=== PATIENT | female | born 1980 | race Caucasian/White ===

== ENCOUNTER 2021-02-28 13:21 | Outpatient (REF) | payer MEDICAID, SELFPAY | END 2021-02-28 13:22 | disposition home or self-care (01) | LOC: HO.LAB 13:21 | PROVIDERS: Visit Provider Internal Medicine | DX: Z20.822 Contact with and (suspected) exposure to COVID-19 (principal) | CPT/HCPCS: C9803; U0003; U0005 ==

== ENCOUNTER 2021-03-01 13:30 | Emergency (ER) | payer MEDICAID, SELFPAY ==
[2021-03-01 13:34] VITALS: BP 138/103; PULSE 73; RESP 18; TEMP 36.7; O2SAT 98; BMI 24.2
== END 2021-03-01 15:01 | disposition left against medical advice (07) ==
LOC: HO.ED 14:50
PROVIDERS: Emergency Provider Emergency Medicine
DX: R10.9 Unspecified abdominal pain (principal)
CPT/HCPCS: 99282

== ENCOUNTER 2021-03-27 13:50 | Outpatient (REF) | payer MEDICAID, SELFPAY ==
[2021-03-27 14:09] LABS: COVID-19 Test Negative (Negative)
== END 2021-03-27 13:51 | disposition home or self-care (01) ==
LOC: HO.LAB 13:50
PROVIDERS: Visit Provider Internal Medicine
DX: Z20.822 Contact with and (suspected) exposure to COVID-19 (principal)
CPT/HCPCS: 36415; 87635; C9803

== ENCOUNTER → 2021-09-18 13:29 | Outpatient (BNVA) | payer MEDICAID, SELFPAY | PROVIDERS: PCP Nurse Practitioner Primary Care | DX: N20.0 Calculus of kidney (principal) | CPT/HCPCS: 99212 ==

== ENCOUNTER 2021-10-29 16:11 | Outpatient (REF) | payer MEDICAID, SELFPAY ==
--- NOTE | ~2021-10-29 | US_ITS ---
EXAMINATION: US RETROPERITONEAL LIMITED (RENAL ONLY) CLINICAL INFORMATION: Calculus of kidney. COMPARISON: Ultrasound abdomen with elastography 09/22/2019. CT abdomen and pelvis 07/01/2019. TECHNIQUE: Real-time imaging of the kidneys. FINDINGS: RIGHT KIDNEY: 12.2 x 4.4 x 5.6 cm (SAG x AP x TRV). The kidney is normal in size, contour, and echogenicity. Renal cortical thickness is normal. There is a 3 mm stone in the lower pole. No focal parenchymal lesions or hydronephrosis. LEFT KIDNEY: 10.4 x 4.4 x 4.4 cm (SAG x AP x TRV). The kidney is normal in size, contour, and echogenicity. There are areas of left renal cortical thinning or scarring. There is a small 3 mm stone in the midpole. No focal parenchymal lesions or hydronephrosis. US/US renal BI IMPRESSION: Small bilateral renal stones. Left renal cortical thinning or scarring.
== END 2021-10-29 16:12 | disposition home or self-care (01) ==
LOC: HO.US 16:11
DX: N20.0 Calculus of kidney (principal)
CPT/HCPCS: 76775

== ENCOUNTER 2022-07-22 08:57 | Outpatient (REF) | payer MEDICAID, SELFPAY ==
--- NOTE | ~2022-07-22 | US_ITS ---
EXAMINATION: MM DIAGNOSTIC DIGITAL BREAST TOMOSYNTHESIS, BILATERAL US DIAGNOSTIC ULTRASOUND BREAST, BILATERAL CLINICAL INFORMATION: 41-year-old with palpable concern outer left breast on and off for one year along with cyclical left breast pain. No prior breast imaging. No discharge. No pain or palpable mass noted by patient at time of appointment. The lifetime risk of breast cancer based on the Tyrer-Cuzick Model is 9%. COMPARISON: None (current study represents initial baseline exam). TECHNIQUE: Digital breast tomosynthesis is performed in both the craniocaudal and mediolateral oblique views along with computer-aided detection (CAD). Synthesized 2D images are generated from the tomosynthesis. Additional spot right CC and spot right ML x2 views are obtained. Ultrasound right breast is targeted to the upper and outer quadrant. Ultrasound left breast is targeted to the area of clinical concern outer breast 2:00 through 5:00 position. Grayscale imaging and color Doppler are performed without and with harmonics. FINDINGS: The breasts are heterogeneously dense, which may obscure small masses (ACR BI-RADS breast composition Category c). Right breast has a focal nodular asymmetry under 1 cm posterior upper outer quadrant with partly obscured margins, suspect intramammary node. Additional spot views do not clearly show notched hilus to confirm. Remainder of the right breast is unremarkable. The left breast shows no mass or architectural abnormality. Neither breast shows abnormal calcifications. The bilateral axilla and skin contours are unremarkable. No skin thickening or coarsening of the Branden's ligaments. Ultrasound right breast shows no cystic or solid mass or intramammary node to correspond to finding on mammography. Ultrasound left breast shows 2 adjacent oval cysts mid 3:00 position each under 1 cm, anechoic, and with increased through-transmission of sound. No associated color flow. There is no solid mass or architectural abnormality. No focal duct ectasia. No skin thickening or edema tracking in soft tissue planes. Results are discussed with the patient at time of visit, using an foreign language interpreter. US/US breast RT limited IMPRESSION: Right: -Focal nodular asymmetry posterior upper outer quadrant, suspect intramammary node. Ultrasound occult. Left: -No mammographic or ultrasound evidence of malignancy or inflammatory changes. -Ultrasound shows 2 small simple cysts mid 3:00 position. ASSESSMENT: BI-RADS 3: Probably Benign RECOMMENDATION: -Patient's left cyclical breast pain may be managed based on the clinical impression. -Right mammography in 6 months to follow up probable benign nodule. This patient's information was entered into a reminder system with a target due date for their next mammogram.
== END 2022-07-22 08:58 | disposition home or self-care (01) ==
LOC: HO.MAMMO 08:57
PROVIDERS: PCP Nurse Practitioner Primary Care; Visit Provider Nurse Practitioner Primary Care
DX: N64.4 Mastodynia (principal)
CPT/HCPCS: 76642; 77062; 77066

== ENCOUNTER 2022-12-02 10:22 | Outpatient (REF) | payer MEDICAID, SELFPAY ==
--- NOTE | ~2022-12-02 | XR_ITS ---
EXAMINATION: XR hand wrist RT CLINICAL INFORMATION: Reason for Exam SPRAIN COMPARISON: None. TECHNIQUE: Four views of the right wrist XR/XR hand wrist RT FINDINGS/IMPRESSION: * No acute fracture or dislocation. * Joint spaces are maintained without significant degenerative change. * No soft tissue abnormality.
== END 2022-12-02 10:23 | disposition home or self-care (01) ==
LOC: HO.XRAY 10:22
PROVIDERS: Visit Provider Chiropractor
DX: S63.501D Unspecified sprain of right wrist, subsequent encounter (principal)
CPT/HCPCS: 73110; 73130

== ENCOUNTER 2023-01-21 14:00 | Outpatient (REF) | payer MEDICAID, SELFPAY ==
--- NOTE | ~2023-01-21 | MM_ITS ---
EXAMINATION: MM DIAGNOSTIC DIGITAL BREAST TOMOSYNTHESIS, RIGHT CLINICAL INFORMATION: Short interval six-month follow-up probable benign nodule posterior outer right breast initially noted at baseline. The lifetime risk of breast cancer based on the Tyrer-Cuzick Model is 9%. COMPARISON: Mammography: 07/22/2022 (baseline, BI-RADS 3), right breast ultrasound 07/22/2022. TECHNIQUE: Digital breast tomosynthesis is performed in both the craniocaudal and mediolateral oblique views along with computer-aided detection (CAD). Synthesized 2D images are generated from the tomosynthesis. FINDINGS: The breasts are heterogeneously dense, which may obscure small masses (ACR BI-RADS breast composition Category c). The parenchymal pattern is similar to baseline exam. The nodule for follow-up posterior outer right breast is stable in size. There is suggestion of a central fatty hilus, suspect intramammary node. There is no architectural abnormality or abnormal calcifications. Right breast will be reassessed again at time of annual bilateral mammography, due in 6 months. Results are provided to the patient at time of visit by the technologist. MM/MM tomosynthesis diagnostic RT IMPRESSION: -Stable nodule posterior outer right breast, suspect intramammary node. ASSESSMENT: BI-RADS 3: Probably Benign RECOMMENDATION: Diagnostic mammography at time of annual bilateral mammography, due in 6 months. This patient's information was entered into a reminder system with a target due date for their next mammogram.
== END 2023-01-21 14:01 | disposition home or self-care (01) ==
LOC: HO.MAMMO 14:00
PROVIDERS: PCP Nurse Practitioner Primary Care; Visit Provider Nurse Practitioner Primary Care
DX: R92.8 Other abnormal and inconclusive findings on diagnostic imaging of breast (principal)
CPT/HCPCS: 77061; 77065

== ENCOUNTER 2023-10-10 14:16 | Outpatient (REF) | payer MEDICAID, SELFPAY ==
--- NOTE | ~2023-10-10 | XR_ITS ---
EXAMINATION: XR FOOT, LEFT CLINICAL INFORMATION: Left foot/heel pain, atraumatic COMPARISON: None available. TECHNIQUE: AP, lateral, and oblique views of the left foot. FINDINGS: The bones are intact. No fracture. Alignment is anatomic. Joint spaces are maintained. Small posterior plantar calcaneal spur and tiny Achilles enthesophyte are noted. XR/XR foot LT min 3V IMPRESSION: No acute bony abnormality.
--- NOTE | ~2023-10-10 | XR_ITS ---
EXAMINATION: XR SHOULDER, RIGHT CLINICAL INFORMATION: Atraumatic right shoulder pain and crepitus COMPARISON: None available. TECHNIQUE: AP external rotation, Grashey, scapular Y, and axillary views of the right shoulder. FINDINGS: The bones are intact. No fracture. Glenohumeral and acromioclavicular alignment is anatomic with normal joint space. No abnormal soft tissue calcifications. XR/XR shoulder RT min 2V IMPRESSION: No bony abnormality.
== END 2023-10-10 14:17 | disposition home or self-care (01) ==
LOC: HO.HHCX 14:16
PROVIDERS: Visit Provider Nurse Practitioner Primary Care
DX: M79.672 Pain in left foot (principal); M25.511 Pain in right shoulder
CPT/HCPCS: 73030; 73630

== ENCOUNTER 2025-08-26 16:18 | Outpatient (REF) | payer MEDICAID, SELFPAY ==
--- OUTSIDE RECORDS SUMMARY | 2025-08-26 09:30 | XMS_ITS | Encounter Summary ---
Author Organization [employer] Address [address] [place] [address] [address] [place] [address] Care Team Providers Care Survey Chief Name Role Phone Lexie Bhat Primary Care Provider [phone] Reason for Referral * Imaging (Routine) - Authorized Specialty Diagnoses / Procedures Referred By Contgeremias t Referred To Contact Radiology Diagnoses Abnormal mammogram Routine screening for STI (sexually transmitted infection) Procedures BI Mammogram Diagnostic Tomosynthesis Bilateral Lexie Bhat ANP [address] [place] [address] Phone: tel: fax: [address] Phone: tel: fax: Referral ID Status Reason Start Date Expiration Date V isits Requested Visits Authorized [id number] Authorized 08/26/2025 08/26/2026 1 1 Reason for Visit * Reason Comments Follow-up Encounter Details Date Type Department Care Team (Late st Contact Info) Description 08/26/2025 9:30 AM EDT Office Visit [facility] MEDICINE [address] [place] [address] Lexie Bhat ANP [address] [place], [place] [phone] Abnormal mammogram (Primary Dx); Routine screening for STI (sexually transmitted infection); Healthcare maintenance; Moderate persistent asthma without complication; Cigarette smoker; Chronic midline thoracic back pain; Chronic midline low back pain with left-sided sciatica; Migraine without aura and without status migrainosus, not intractable; Dietary counseling; Exercise counseling; Other depression Social History Tobacco Use Types Packs/Day Years Used Date Smoking Tobacco: Every Day Cigarettes Smokeless Tobacco: Never Tobacco Cessation:Ready to Q uit: Not Asked; Counseling Given: Not Answered Alcohol Use Standard Drinks/Week Comments Not Currently 0 (1 standard drink = 0.6 oz pur e alcohol) Depression Answer Date Recorded Patient Health Questionnaire-9 Score 0 04/09/2023 Housing Stability Answer Date Recorded What is your housing situation today? I have kyle esquivel 08/26/[address] you li ve. Do you have problems with any of the following? None of the above 08/26/2025 Food Insecurity Answer Date Recorded Within the past 12 months, y ou worried that your food would run out before you got money to buy more: Never True 08/26/2025 Within the past 12 months,th e food you bought just didn't last and you didn't have enough money to get more: Never True Transportation Answer Date Recorded In the past 12 months, has l ack of transportation kept you from medical appts, meetings, work or from getting things needed for daily living? No 08/26/2025 Utilities Answer Date Recorded In the past 12 months, has t he electric, gas, oil or water company threatened to shut off services in your home? No 08/26/2025 Depression Answer Date Recorded Patient Health Questionnaire-2 Score 1 08/26/2025 Comments Unknown Intention Date Recorded No desire to become (finding) 1 Sex and Gender Information Value Date Recorded Sex Assigned at Female 08/26/2022 10:34 AM EDT Legal Sex Female 10:34 AM EDT Gender Identity Female 08/26/2022 10:34 AM EDT Sexual Orientation Straight 08/26/2022 10 :34 AM EDT documented as of this encounter Last Filed Vital Signs Vital Sign Reading Time Taken Comments Blood Pressure 130/76 08/26/2025 9:30 AM EDT Pulse 100 08/26/2025 9:30 AM EDT Temperature 37 C (98.6 F) 08/26/2025 9:30 AM EDT Respiratory Rate 19 08/26/2025 9:30 AM EDT Oxygen Saturation 95% 08/26/2025 9:30 AM EDT Inhaled Oxygen Concentration - - Weight 75.3 kg (166 lb) 08/26/2025 9:30 AM EDT Height 165.1 cm (5' 5 ) 08/26/2025 9:30 AM EDT Body Mass Index 27.62 08/26/2025 9:30 AM EDT documented in this encounter Functional Status * Over the past 2 weeks, how often have you been bothered by any of the following problems? Question Answer Date of Assessment Author Patient Health Questionnaire -2 Score 1 08/26/2025 9:37 AM EDT Jose Garcia MA * Little interest or pleasure in doing things Answer Date of Assessment Author Several days 08/26/2025 9:37 AM EDT Keisha Garcia MA * Feeling down, depressed, or hopeless Answer Date of Assessment Author Not at all 08/26/2025 9:37 AM EDT Keisha Garcia MA * Feeling tired or having little energy Answer Date of Assessment Author More than half the days 08/26/2025 9:37 AM EDT Jose Coelho MA * Poor appetite or overeating Answer Date of Assessment Author Not at all 08/26/2025 9:37 AM EDT Keisha Garcia MA * Feeling bad about yourself - or that you are a failure or have let yourself or your family down Answer Date of Assessment Author Several days 08/26/2025 9:37 AM EDT Keisha Garcia MA * Trouble concentrating on things, such as reading the newspaper or watching television Answer Date of Assessment Author Not at all 08/26/2025 9:37 AM MIRZAT Keisha Garcia MA * Moving or speaking so slowly that other people could have noticed? Or the opposite - being so fidgety or restless that you have been moving around a lot more than usual. Answer Date of Assessment Author Not at all 08/26/2025 9:37 AM EDT Keisha Garcia MA * Thoughts that you would be better off or hurting yourself in some way Answer Date of Assessment Author Not at all 08/26/2025 9:37 AM MIRZAT Keisha Garcia MA * Over the last 2 weeks, how often have you been bothered by any of the following problems? Question Answer Date of Assessment Author Feeling nervous, anxious, or on edge 1 08/26/2025 9:37 AM EDT Jose Garcia MA Not being able to stop or co ntrol worrying 0 08/26/2025 9:37 AM EDT Jose Garcia MA Worrying too much about diff erent things 3 08/26/2025 9:37 AM EDT Jose Garcia MA Trouble relaxing 2 08/26/2025 9:37 AM EDT Jose Coelho MA Being so restless that it is hard to sit still 0 08/26/2025 9:37 AM EDT Jose Garcia MA Becoming easily annoyed or irritable 0 08/26/2025 9:37 AM EDT Jose Garcia MA Feeling afraid as if somethi ng awful might happen 0 08/26/2025 9:37 AM EDT Jose Garcia MA AUBREY-7 Total Score 6 08/26/2025 9:37 AM EDT Jose Garcia MA documented as of this encounter Plan of Treatment Scheduled Orders Name Type Priority Associated Diagnoses Orde r Schedule BI Mammogram Diagnostic Tomosynthesis Bilateral Imaging Routine Abnormal mammogram Routine screening for STI (sexually transmitted infection) Expected: 08/26/2025, Expires: 10/26/2026 Comprehensive Metabolic Panel Lab Routine Healthcare maintenance Expected: 08/26/2025 (Approximate), Expires: 08/26/2026 Lipid Panel, Standard Lab Routine Healthcare maintenance Expected: 08/26/2025 (Approximate), Expires: 08/26/2026 HIV-1/2 Antigen and Antibodies, Fourth Generation, with Reflexes Lab Routine Routine screening for STI (sexually transmitted infection) Expected: 08/26/2025 (Approximate), Expires: 08/26/2026 Syphilis Screen Lab Routine Routine screening for STI (sexually transmitted infection) Expected: 08/26/2025 (Approximate), Expires: 08/26/2026 Bacterial Vaginosis Panel Microbiology Routine Routine screening for STI (sexually transmitted infection) Ordered: 08/26/2025 CBC auto differential Lab Routine Healthcare maintenance Expected: 08/26/2025 (Approximate), Expires: 08/26/2026 Hepatitis C Viral RNA, Quantitative, Real-Time PCR Lab Routine Routine screening for STI (sexually transmitted infection) Expected: 08/26/2025 (Approximate), Expires: 08/26/2026 Chlamydia/N. Gonorrhoeae RNA, TMA, Vaginal Microbiology Routine Routine screening for STI (sexually transmitted infection) Ordered: 08/26/2025 documented as of this encounter Visit Diagnoses Diagnosis Abnormal mammogram- Primary Abnormal mammogram, unspecified Routine screening for STI (sexually transmitted infection) Screening examination for venereal disease Healthcare maintenance Moderate persistent asthma without complication Cigarette smoker Tobacco use disorder Chronic midline thoracic back pain Chronic midline low back pain with left-sided sciatica Migraine without aura and without status migrainosus, not intractable Dietary counseling Dietary surveillance and counseling Exercise counseling Other depression documented in this encounter Additional Health Concerns Assessment Noted Time PHQ-9 Depression Total Score: 0 04/09/20 23 3:32 PM EDT documented as of this encounter Care Teams Survey Chief Relationship Specialty Start Date End Date Lexie Bhat ANP [address] [place] [id number] PCP - General Family Medicine 10/16/20 documented as of this encounter
--- OUTSIDE RECORDS SUMMARY | 2025-08-26 16:20 | XMS_ITS | Encounter Summary ---
Author Organization [employer] Address [address] [facility] [address] [place] [address] Care Team Providers Care Plate Mounter Name Role Phone Lexie Bhat Primary Care Provider [phone] Reason for Visit * Reason Onset Date Comments chart prep 08/25/2025 Encounter Details Date Type Department Care Team ([facility] st Contact Info) Description 08/25/2025 Telephone [facility] MEDICINE [address] [place], [place] [phone] Lexie Bhat ANP [address] [place], [place] [phone] chart prep Social History Tobacco Use Types Packs/Day Years Used Date Smoking Tobacco: Every Day Cigarettes Smokeless Tobacco: Never Alcohol Use Standard Drinks/Week Comments Not Currently [...] Health Questionnaire-2 Score 1 08/26/2025 Comments Unknown Sex and Gender Information Value Date Recorded Sex Assigned at Female 08/26/2022 10:34 AM EDT Legal Sex Female 10:34 AM EDT Gender Identity Female 08/26/2022 10:34 AM EDT Sexual Orientation Straight 08/26/2022 10 :34 AM EDT documented as of this encounter Miscellaneous Notes * Telephone Encounter - Jose Garcia MA - 08/25/2025 8:43 AM EDT Chart Prep Labs: not applicable Images: not applicable Referrals: not applicable Vaccines due: Covid, Flu, PCV20, and HPV Screenings: mammogram and HIV screening Overdue care gaps: SBIRT, SDOH, PHQ-9, AUBREY-7, Oral health screening, and Disability screen documented in this encounter Plan of Treatment Not on file documented as of this encounter Visit Diagnoses Not on filedocumented in this encounter Additional Health Concerns Assessment Noted Time PHQ-9 Depression Total Score: 0 04/09/20 23 3:32 PM EDT documented as of this encounter Care Teams Plate Mounter Relationship Specialty Start Date End Date Lexie Bhat ANP [address] [place] [address] PCP - General Family Medicine 10/16/20 documented as of this encounter
--- OUTSIDE RECORDS SUMMARY | 2025-08-26 16:20 | XMS_ITS | Encounter Summary ---
Author Organization [employer] Address [address] [place] [address] Care Team Providers Care Retort Pre Cooker Name Role Phone Lexie Bhat Primary Care Provider [phone] Reason for Visit * Reason Onset Date Comments change 07/01/2025 Encounter Details Date Type Department Care Team ([facility] st Contact Info) Description 07/01/2025 Telephone [facility] MEDICINE [address] [place], [place] [phone] Lexie Bhat ANP [address] [place], [place] [phone] change Social History Tobacco Use Types Packs/Day Years Used Date Smoking Tobacco: Every Day Cigarettes Smokeless Tobacco: Never Alcohol Use Standard Drinks/Week Comments Not Currently 0 (1 standard drink = 0.6 oz pur e alcohol) Depression Answer Date Recorded Patient Health Questionnaire-9 Score 0 04/09/2023 Housing Stability Answer Date Recorded What is your housing situation today? I have kylemarry esquivel 01/22/[address] you li ve. Do you have problems with any of the following? None of the above 01/22/2024 Food Insecurity Answer Date Recorded Within the past 12 months, y ou worried that your food would run out before you got money to buy more: Sometimes True 2023 Within the past 12 months,th e food you bought just didn't last and you didn't have enough money to get more: Sometimes True 01/22/2024 Transportation Answer Date Recorded In the past 12 months, has l ack of transportation kept you from medical appts, meetings, work or from getting things needed for daily living? No 01/22/2024 Utilities Answer Date Recorded In the past 12 months, has t he electric, gas, oil or water company threatened to shut off services in your home? No 01/22/2024 Depression Answer Date Recorded Patient Health Questionnaire-2 Score 0 04/09/2023 Comments Unknown Sex and Gender Information Value Date Recorded Sex Assigned at Female 08/26/2022 10:34 AM EDT Legal Sex Female 10:34 AM EDT Gender Identity Female 08/26/2022 10:34 AM EDT Sexual Orientation Straight 08/26/2022 10 :34 AM EDT documented as of this encounter Miscellaneous Notes * Telephone Encounter - Mario Boggs - 07/01/2025 3:28 PM EDT Tc from pt reporting a change of insurance. [employer] [id number] documented in this encounter Plan of Treatment Not on file documented as of this encounter Visit Diagnoses Not on filedocumented in this encounter Additional Health Concerns Assessment Noted Time PHQ-9 Depression Total Score: 0 04/09/20 23 3:32 PM EDT documented as of this encounter Care Teams Retort Pre Cooker Relationship Specialty Start Date End Date Lexie Bhat ANP [address] [place] [address] PCP - General Family Medicine 10/16/20 documented as of this encounter
--- OUTSIDE RECORDS SUMMARY | 2025-08-26 16:21 | XMS_ITS | Encounter Summary ---
Author Organization [employer] Address [address] [place] [address] [address]t [place] [address] Care Team Providers Care Lecturer Of Portuguese Name Role Phone Lexie Bhat Primary Care Provider [phone] Encounter Details Date Type Department Care Team (Late st Contact Info) Description 04/21/2023 Abstract [facility] MEDICINE [address] [place], [place] [phone] Lexie Bhat ANP [address] [place], [place] [phone] Social History Tobacco Use Types Packs/Day Years Used Date Smoking Tobacco: Every Day Cigarettes Smokeless Tobacco: Never Alcohol Use Standard Drinks/Week Comments Not Currently 0 (1 standard drink = 0.6 oz pur e alcohol) Depression Answer Date Recorded Patient Health Questionnaire-9 Score 0 04/09/2023 Depression Answer Date Recorded Patient Health Questionnaire-2 Score 0 04/09/2023 Comments Unknown Sex and Gender Information Value Date Recorded Sex Assigned at Female 08/26/2022 10:34 AM EDT Legal Sex Female 10:34 AM EDT Gender Identity Female 08/26/2022 10:34 AM EDT Sexual Orientation Straight 08/26/2022 10 :34 AM EDT COVID-19 Exposure Response Date Recorded In the last 10 days, have yo u been in contact with someone who was confirmed or suspected to have Coronavirus/COVID-19? No / Unsure 04/09/2023 3:02 PM EDT documented as of this encounter Plan of Treatment Not on file documented as of this encounter Visit Diagnoses Not on filedocumented in this encounter Additional Health Concerns Assessment Noted Time PHQ-9 Depression Total Score: 0 04/09/20 23 3:32 PM EDT documented as of this encounter Care Teams Lecturer Of Portuguese Relationship Specialty Start Date End Date Lexie Bhat ANP [address] [place] [address] PCP - General Family Medicine 10/16/20 documented as of this encounter
--- OUTSIDE RECORDS SUMMARY | 2025-08-26 16:21 | XMS_ITS | Encounter Summary ---
Author Organization [employer] [facility] Address [address] [place] [address] [address] [place] [address] Care Team Providers Care Rabies Inspector Name Role Phone Lexie Bhat Primary Care Provider [phone] Encounter Details Date Type Department Care Team (Latest Contact Info) Description 01/17/2022 Abstract [facility], Provider, DDS Social History Tobacco Use Types Packs/Day Years Used Date Smoking Tobacco: Never Assessed Comments Unknown Sex and Gender Information Value Date Recorded Sex Assigned at Female 08/26/2022 10:34 AM EDT Legal Sex Female 10:34 AM EDT Gender Identity Female 08/26/2022 10:34 AM EDT Sexual Orientation Straight 08/26/2022 10 :34 AM EDT documented as of this encounter Plan of Treatment Not on file documented as of this encounter Visit Diagnoses Not on filedocumented in this encounter Care Teams Rabies Inspector Relationship Specialty Start Date End Date Lexie Bhat ANP [address] [place] [address] PCP - General Family Medicine 10/16/20 documented as of this encounter
--- OUTSIDE RECORDS SUMMARY | 2025-08-26 16:22 | XMS_ITS | Encounter Summary ---
Author Organization [employer] Address [address] [facility] [address] [place] [address] Care Team Providers Care Director Of Curriculum Name Role Phone Lexie Bhat Primary Care Provider [phone] Encounter Details Date Type Department Care Team (Latest Contact Info) Description 08/26/2025 Travel Social History Tobacco Use Types Packs/Day Years [...] AM EDT documented as of this encounter Functional Status * Over the [...] Assessment Author Several days 08/26/2025 9:37 AM MIRZAT Keisha Garcia MA * Trouble concentrating on [...] Author Not at all 08/26/2025 9:37 AM EDKeisha Wetzel MA * Thoughts that you would be better off or hurting yourself in some way Answer Date of Assessment Author Not at all 08/26/2025 9:37 AM EDT Keisha Garcia MA * Over the last 2 weeks, how often have you been bothered by any of the following problems? Question Answer Date of Assessment Author Feeling nervous, anxious, or on edge 1 08/26/2025 9:37 AM MIRZAT Jose Garcia MA Not being able to [...] documented as of this encounter Care Teams Director Of Curriculum Relationship Specialty Start Date End Date [facility]ie Bhat ANP [address] [facility] [place] [address] PCP - General Family Medicine 10/16/20 documented as of this encounter
--- OUTSIDE RECORDS SUMMARY | 2025-08-26 16:22 | XMS_ITS | Clinical Summary ---
Author Organization [employer] Address [address] [place] [address] [address] [place] [address] Care Team Providers Care Animal Cytologist Name Role Phone Hung Moran Primary Care Provider [phone] Allergies No known active allergies Medications ibuprofen 800 MG tablet TAKE 1 TABLET BY MOUTH THREE TIMES DAILY WITH FOOD 07/10/20 22 Active butalbital-acet aminophen-caffe ine (Fioricet) 50-300-40 MG capsuleIndicati ons:Migraine without aura and without status migrainosus, not intractable TAKE 1 TO 2 CAPSULES BY MOUTH EVERY 4 HOURS IF NEEDED NOT TO EXCEED 6 CAPSULES IN 24 HOURS 15 capsule 1 08/26/20 25 Active HPV 9-valent (Gardasil-9) suspension prefilled syringe vaccine prefilled syringe Inject 0.5 mL into the muscle Use as directed. 0.5 mL 2 08/26/20 25 Active fluticasone (Flovent) 220 MCG/ACT inhalerIndicati ons:Moderate persistent asthma without complication Inhale 1 puff in the morning and at bedtime. Rinse mouth with water after use to reduce aftertaste and incidence of candidiasis. Do not swallow. 12 g 11 01/07/20 23 025 Discontinued(T herapy completed) albuterol 108 (90 Base) MCG/ACT inhalerIndicati ons:Moderate persistent asthma without complication Inhale 2 puffs every 6 (six) hours if needed for wheezing. 18 g 11 04/09/20 23 025 Discontinued(T herapy completed) butalbital-acet aminophen-caffe ine (Fioricet) 50-300-40 MG capsuleIndicati ons:Other migraine without status migrainosus, not intractable TAKE 1 TO 2 CAPSULES BY MOUTH EVERY 4 HOURS IF NEEDED NOT TO EXCEED 6 CAPSULES IN 24 HOURS 15 capsule 1 10/08/20 23 025 Discontinued(R eorder (will not trigger notification to Pharmacy)) Active Problems Problem Noted Date Diagnosed Date Depression 08/26/2025 Overview (08/26/2025): declines BH today Migraine without aura and wi thout status migrainosus, not intractable 08/26/2025 Cigarette smoker 10/08/2023 Moderate persistent asthma without complication 01/06/2023 Kidney stone 01/05/2023 Postcoital bleeding 01/05/2023 Abnormal mammogram 07/30/2022 Hepatitis C antibody test positive 12/07/2018 Encounters Date Type Department Care Team Description 08/26/2025 9:30 AM EDT Office Visit [facility] [address] [place] [address] [phone] Hung Moran ANP Abnormal mammogram (Primary Dx); Routine screening for STI (sexually transmitted infection); Healthcare maintenance; Moderate persistent asthma without complication; Cigarette smoker; Chronic midline thoracic back pain; Chronic midline low back pain with left-sided sciatica; Migraine without aura and without status migrainosus, not intractable; Dietary counseling; Exercise counseling; Other depression 08/26/2025 Travel 08/25/2025 Telephone [facility] [address] [place] [phone] Hung Moran ANP chart prep 07/01/[address] [phone] Hung Moran ANP change from Last 3 Months Immunizations Immunization Administration Dates Next Due Hep A / Hep B 07/07/2015 Hep A, Adult 11/26/2019,03/05/2019 Hep B, adult 09/21/2019, 9,12/23/2018,08/10 Influenza injectable quadriv alent preservative free 09/25/2021,11/26/2019 Influenza, IIV3, injectable 08/10/2015 Pneumococcal Polysaccharide PPSV23 03/05/2019 Tdap 09/21/2019 Social History Tobacco Use Types Packs/Day Years [...] Orientation Straight 08/26/2022 10 :34 AM EDT Last Filed Vital Signs Vital Sign Reading [...] Mass Index 27.62 08/26/2025 9:30 AM EDT Plan of Treatment Health Maintenance Due Date Last Done Comments HIV Screening 1980 Lipid Panel 1980 HPV Vaccines (1 - 3-dose series) 1995 Mammogram 07/24/2023 01/21/2023, 07/22/2022 SDOH Screening 01/21/2025 01/22/2024 Pap Smear 07/18/2025 07/18/2022, 07/18/2022 Influenza Vaccine (#1) 2026 , 11/26/2019, 08/10/2015 Postponed from 06/27/2025 (Patient Refused) Alcohol/Substance Use Screening 08/26/2026 08/26/2025 COVID-19 Vaccine ( season) 2026 01/25/2023, 12/27/2022 Postponed from 06/27/2025 (Patient Refused) Depression Screening 08/26/2026 08/26/2025, 04/09/20 23 Disability Screening 08/26/2026 08/26/2025 Family Planning (PISQ) 08/26/2026 08/26/2025 Pneumococcal Vaccine: Pediatrics (0 to 5 Years) and At-Risk Patients (6 to 49) Years (2 of 2 - PCV) 08/26/2026 03/05/2019 Postponed from 03/05/2020 (Patient Refused) Tobacco Screening 08/26/2026 08/26/2025 Cervical Cancer Screening 07/18/2027 HPV/Cotest 07/18/2027 07/18/2022 DTaP/Tdap/Td Vaccines (2 - Td or Tdap) 09/21/2029 09/21/2019 Zoster Vaccines (1 of 2) 2030 RSV Patients and Patients Aged 60 years or older (1 - 1-dose 75+ series) 2055 Hepatitis B Vaccines Completed 09/21/2019, 03/05/2019, 12/23/2018, Additional history exists Hepatitis A Vaccines Aged Out 11/26/2019, 03/05/2019, 07/07/2015 No longer eligible based on patient's age to complete this topic HIB Vaccines Aged Out No longer eligi ble based on patient's age to complete this topic IPV Vaccines Aged Out No longer eligi ble based on patient's age to complete this topic Meningococcal B Vaccine Aged Out No l onger eligible based on patient's age to complete this topic Meningococcal Vaccine Aged Out No caroline karen eligible based on patient's age to complete this topic RSV under 20 months Aged Out No longe r eligible based on patient's age to complete this topic Rotavirus Vaccines Aged Out No longer eligible based on patient's age to complete this topic Procedures Procedure Name Priority Date/Time Associated Diagnosis Comments BI MAMMOGRAM DIAGNOSTIC TOMOSYNTHESIS RIGHT Routine 01/21/2023 2:20 PM EDT THINPREP IMAGING PAP AND HPV MRNA E6/E7, WITH CT/NG, TRICHOMONAS Routine 07/18/2022 9:34 AM EDT PAP SMEAR Routine 07/18/2022 12:00 AM EDT from Last 3 Months or Most Recently Relevant to Health Maintenance Results * BI Mammogram Diagnostic Tomosynthesis Right (01/21/2023 2:20 PM EDT) Anatomical Region Laterality Modality Breast Right Mammography 01/21/2023 2:20 PM EDT Narrative 01/21/2023 2:42 PM EDT [address] [place] [address] Mammography Report Signed Patient: Melba Christianson MR#: [id number] 1 : 1980 Acct:[id number] Age/Sex: 42 / F ADM Date: 01/21/23 Loc: HO.MAMMO Attending Dr: Hung Moran NP Ordering Physician: HUNG MORAN NP Results: 3.6MProbabl y Benign Finding - Short 6 M F/U Suggested Date of Service: 01/21/23 Follow Up: 1 Year From Orig ina Mammogram Procedure(s): MM tomosynthesis diagnostic RT Accession Number(s): [id number] cc: HUNG MORAN NP EXAMINATION: MM DIAGNOSTIC DIGITAL BREAST TOMOSYNTHESIS, RIGHT CLINICAL INFORMATION: Short interval six-month follow-up probable benign nodule posterior outer right breast initially noted at baseline. The lifetime risk of breast cancer based on the Tyrer-Cuzick Model is 9%. COMPARISON: Mammography: 07/22/2022 (baseline, BI-RADS 3), right breast ultrasound 07/22/2022. TECHNIQUE: Digital breast tomosynthesis is performed in both the craniocaudal and mediolateral oblique views along with computer-aided detection (CAD). Synthesized 2D images are generated from the tomosynthesis. FINDINGS: The breasts are heterogeneously dense, which may obscure small masses (ACR BI-RADS breast composition Category c). The parenchymal pattern is similar to baseline exam. The nodule for follow-up posterior outer right breast is stable in size. There is suggestion of a central fatty hilus, suspect intramammary node. There is no architectural abnormality or abnormal calcifications. Right breast will be reassessed again at time of annual bilateral mammography, due in 6 months. Results are provided to the patient at time of visit by the technologist. MM/MM tomosynthesis diagnostic RT IMPRESSION: -Stable nodule posterior outer right breast, suspect intramammary node. ASSESSMENT: BI-RADS 3: Probably Benign RECOMMENDATION: Diagnostic mammography at time of annual bilateral mammography, due in 6 months. This patient's information was entered into a reminder system with a target due date for their next mammogram. Dictated By: Golden Paige MD Signed By: <Electronically signed by Golden Paige MD in OV> 01/21/23 1439 DD/ 1420 TD/TT: Organizational Development Manager: GIOVANNA Procedure Note Donotuseinterpreter, Image - 01/21/2023 [facility] [address] [place] [address] Mammography Report Signed Patient: Melba Christianson#: [id number] 1 : 1980Acct:[id number] Age/Sex: 42 / FADM Date: 01/21/23 Loc: HO.MAMMO Attending Dr: Hung Moran NP Ordering Physician: HUNG MORAN NPResults: 3.6MProbabl y Benign Finding - Short 6 M F/U Suggested Date of Service: 01/21/23Follow Up: 1 Year From Orig inal Mammogram Procedure(s): MM tomosynthesis diagnostic RT Accession Number(s): [id number] cc: HUNG MORAN NP EXAMINATION: MM DIAGNOSTIC DIGITAL BREAST TOMOSYNTHESIS, RIGHT CLINICAL INFORMATION: Short interval six-month follow-up probable benign nodule posterior outer right breast initially noted at baseline. The lifetime risk of breast cancer based on the Tyrer-Cuzick Model is 9%. COMPARISON: Mammography: 07/22/2022 (baseline, BI-RADS 3), right breast ultrasound 07/22/2022. TECHNIQUE: Digital breast tomosynthesis is performed in both the craniocaudal and mediolateral oblique views along with computer-aided detection (CAD). Synthesized 2D images are generated from the tomosynthesis. FINDINGS: The breasts are heterogeneously dense, which may obscure small masses (ACR BI-RADS breast composition Category c). The parenchymal pattern is similar to baseline exam. The nodule for follow-up posterior outer right breast is stable in size. There is suggestion of a central fatty hilus, suspect intramammary node. There is no architectural abnormality or abnormal calcifications. Right breast will be reassessed again at time of annual bilateral mammography, due in 6 months. Results are provided to the patient at time of visit by the technologist. MM/MM tomosynthesis diagnostic RT IMPRESSION: -Stable nodule posterior outer right breast, suspect intramammary node. ASSESSMENT: BI-RADS 3: Probably Benign RECOMMENDATION: Diagnostic mammography at time of annual bilateral mammography, due in 6 months. This patient's information was entered into a reminder system with a target due date for their next mammogram. Dictated By: Golden Paige MD Signed By: <Electronically signed by Golden Paige MD in OV> 01/21/23 1439 DD/ 1420 TD/TT: Organizational Development Manager: [facility] External Provider IMG BI PROCEDURES Edited Result - Final * (ABNORMAL) THINPREP TIS PAP AND HPV mRNA E6/E7, CT/NG, TRICH (07/18/2022 9:34 AM EDT) Chlamydia trachomatis RNA, TMA, Urogenital NOT DETECTED NOT DETECTED [facility] Clinical Information: None given [facility] COMMENT SEE COMMENT [facility] Comment: The analytical performance characteristics of this assay, when used to test SurePath(TM) specimens have been determined by [facility]. The modifications have not been cleared or approved by the FDA. This assay has been validated pursuant to the CLIA regulations and is used for clinical purposes. For additional information, please refer to https://Arrogene.Rexly/faq/YDT080 (This link is being provided for information/ educational purposes only.) COMMENT SEE COMMENT [facility] Comment: EXPLANATORY NOTE: The Pap is a screening test for cervical cancer. It is not a diagnostic test and is subject to false negative and false positive results. It is most reliable when a satisfactory sample, regularly obtained, is submitted with relevant clinical findings and history, and when the Pap result is evaluated along with historic and current clinical information. COMMENT: SEE COMMENT [facility] Comment: This case could not be evaluated with computer assisted technology. The slide was manually screened according to routine procedures. Student Nurse: SEE COMMENT [facility] Comment: MPG, CT(ASCP) CT screening location: [place] [address] HPV nRNA E6/E7 Not Detected Not Detected [facility] Comment: Methodology: Camera Operator-Mediated Amplification This assay detects E6/E7 viral messenger RNA (mRNA) from 14 high-risk HPV types (16,18,31,33,35,39,45,51,52,56,58,59,66,68). Cervical sources are required for HPV testing. If a vaginal source from a patient who has had a total hysterectomy with removal of cervix was submitted, please contact the testing laboratory for alternative testing options. For additional information, please refer to http://Arrogene.Rexly/faq/YFN252h4 (This link if provided for information/ educational purposes only.) Infection Trichomonas vaginalis identified. [facility] Interpretation/Re sult: Negative for intraepithelial lesion or malignancy. [facility] LMP: 06/27/2022 [facility] Neisseria gonorrhoeae RNA, TMA, Urogenital NOT DETECTED NOT DETECTED [facility] Prev. BX: NONE GIVEN [facility] Prev. PAP: NONE GIVEN [facility] Review Student Nurse: SEE COMMENT [facility] Comment: [facility], CT(ASCP) CT screening location: [place] [address] SOURCE: None given [facility] Statement Of Adequacy: SEE COMMENT [facility] Comment: Satisfactory for evaluation. Endocervical/transformation zone component present. Trichomonas vaginalis, QL, TMA, PAP Vial DETECTED(A) NOT DETECTED [facility] Comment: The analytical performance characteristics of this assay have been determined by [facility]. The modifications have not been cleared or approved by the FDA. This assay has been validated pursuant to the CLIA regulations and is used for clinical purposes. For additional information, please refer to http://education.Rexly/ faq/Trichomonastma (This link is being provided for information/ educational purposes only.) 07/18/2022 9:34 AM EDT Sailaja Morales [facility] ORDERABLES Final Result [facility] [address] * Pap Smear (07/18/2022 12:00 AM EDT) Swab Sailaja Morales [facility] CYTOLOGY ORDERABLES F inal Result [facility] [address], [place] [address] from Last 3 Months or Most Recently Relevant to Health Maintenance Insurance [address] [place] [id number] [facility] HMO * Guarantor: Melba Christianson Account Type Relation to Patient Date of Phone Billing Address Personal/Family Self [address] Care Teams Animal Cytologist Relationship Specialty Start Date End Date Hung Moran ANP [address] [place] [phone] PCP - General Family Medicine 10/16/20
[2025-08-27 12:27] LABS: Bacterial Vaginosis PCR NEGATIVE (Negative); Candida Group PCR DETECTED (Not Detect); Candida glab krusei PCR NOT DETECTED (Not Detect); Trichomonas vaginalis PCR NOT DETECTED (Not Detect)
[2025-08-27 13:01] LABS: CT PCR NOT DETECTED (Not Detect.); NG PCR NOT DETECTED (Not Detect.)
== END 2025-08-26 16:19 | disposition home or self-care (01) ==
LOC: HO.LNP 16:18
PROVIDERS: Visit Provider Nurse Practitioner Primary Care
DX: Z20.2 Contact with and (suspected) exposure to infections with a predominantly sexual mode of transmission (principal)
CPT/HCPCS: 81515; 87491; 87591

== ENCOUNTER 2025-08-31 06:45 | Outpatient (REF) | payer BC, SELFPAY ==
[2025-08-31 06:56] LABS: MANUAL DIFF FLAG NO
[2025-08-31 07:22] LABS: Hematocrit 40.9 % (37.0-47.0); Hemoglobin 13.9 g/dl (12.0-16.0); Imm Gran Abs Auto 0.04 X10*3/uL (0.00-0.03); Imm Gran Pct Auto 0.4 % (0.0-0.4); Lymphocytes Absolute Auto 2.2 X10*3/uL (1.2-4.9); Mean Corpuscular HGB Conc 34.0 g/dl (31.0-35.0); Mean Corpuscular Hemoglobin 31.0 pg (27.0-33.0); Mean Corpuscular Volume 91.3 fL (80.0-98.0); NRBC Abs Auto 0.000 X10*3/uL (0.0-0.012); NRBC Pct Auto 0.0 /100WBC (0.0-0.2); Platelet Count 240 X10*3/uL (160-400); Red Blood Count 4.48 X10*6/uL (4.20-5.50); White Blood Count 9.5 X10*3/uL (4.8-10.8)
[2025-08-31 07:38] LABS: Alanine Aminotransferase 13 U/L (0-31); Albumin Level 4.5 g/dL (3.5-5.0); Alkaline Phosphatase 65 U/L (39-117); Anion Gap 11 (12-20); Aspartate Amino Transferase 18 U/L (5-31); Blood Urea Nitrogen 11 mg/dL (9-16); Calcium 8.9 mg/dL (8.4-10.2); Carbon Dioxide 24 mmol/L (22-29); Chloride 110 mmol/L (96-108); Cholesterol 202 mg/dL (<200); Estimated Glomerular Filt Rate > 60; HDL Cholesterol 40 mg/dL (>40); Potassium 4.2 mmol/L (3.3-5.1); Sodium 141 mmol/L (135-145); Total Protein 7.2 g/dL (6.5-8.0); Triglycerides 116 mg/dL (<150)
[2025-08-31 07:57] LABS: HIV Num 1 3.92 S/CO (0.00-0.99)
[2025-08-31 07:58] LABS: Syphilis Screen Nonreactive (Nonreactive)
[2025-08-31 13:43] LABS: HIV Num 2 0.06 S/CO; HIV Num 3 0.05 S/CO
[2025-09-01 16:48] LABS: HCV Log PCR <1.18 NOT DETECTED Log IU/mL (NOT DETECTED); HepC Viral Load <15 NOT DETECTED IU/mL (NOT DETECTED)
== END 2025-08-31 06:46 | disposition home or self-care (01) ==
LOC: HO.LAB 06:45
PROVIDERS: PCP Nurse Practitioner Primary Care; Visit Provider Nurse Practitioner Primary Care
DX: Z00.00 Encounter for general adult medical examination without abnormal findings (principal); Z11.3 Encounter for screening for infections with a predominantly sexual mode of transmission; Z13.6 Encounter for screening for cardiovascular disorders; Z11.4 Encounter for screening for human immunodeficiency virus [HIV]
CPT/HCPCS: 36415; 80053; 80061; 85025; 86780; 87389; 87522